=== PATIENT | male | born 1960 | race Caucasian/White ===

== ENCOUNTER 2018-06-27 20:33 | Emergency (ER) | payer OTHER ==
[~2018-06-27] VITALS: Ht 162.6 cm; Wt 77.1 kg
[2018-06-27] MEDS ORDERED: SINGULAIR10 MG (20:55)
[2018-06-27] MEDS ORDERED: OMEPRAZOLE10 MG (20:55)
[2018-06-27] MEDS ORDERED: LOSARTAN POTASS25 MG (20:55)
[2018-06-27] MEDS ORDERED: LEVALBUTER0.31 MG/3 (20:56)
[2018-06-28] MEDS ORDERED: BUDESONIDE0.5 MG/2 M IH (06:30)
[2018-06-28] MEDS ORDERED: CEFDINIR300 MG PO (06:30)
[2018-06-28] MEDS ORDERED: IPRAT-ALBUT 0.5-3 ML IH (06:30)
[2018-06-28] MEDS ORDERED: PROMETH-CODEIN 65 ML PO (06:30)
== END 2018-06-28 06:35 ==
LOC: ER 20:33
DX: J06.9 Acute upper respiratory infection, unspecified (principal)